=== PATIENT | male | born 1960 ===

== ENCOUNTER 2017-06-08 23:17 | Emergency (ER) | payer SELFPAY ==
[~2017-06-08] VITALS: Ht 170.2 cm; Wt 81.5 kg
[2017-06-08 23:29] VITALS: BP 95/54; PULSE 110; RESP 16; TEMP 97.3; O2SAT 91
[2017-06-09] MEDS ORDERED: HYDR50CA PO (02:31)
[2017-06-09] MEDS ORDERED: GABA600T PO (02:31)
[2017-06-09] MEDS ORDERED: PROP10TA6 PO (02:31)
[2017-06-09] MEDS ORDERED: TRAZ50TA12 PO (02:31)
[2017-06-09] MEDS ORDERED: BUSP10TA PO (02:31)
[2017-06-09] MEDS ORDERED: ESCI10TA PO (02:31)
[2017-06-09] MEDS ORDERED: LISI-515 PO (02:31)
[2017-06-09] MEDS ORDERED: SERO100T PO (02:31)
--- NOTE | 2017-06-09 02:32 | PD ---
HPI Chief Complaint: Anxiety Time Seen by Provider: 02:18 Travel History International Travel<30 days: No Contact w/Intl Traveler<30days: No Traveled to known affect area: No History of Present Illness HPI 57-year-old male presents to emergency department for evaluation of anxiety. Patient has been staying at a sober living house. This evening he was supposed to produce a urine sample but was unable to. This resulted in him being " kicked out of the house." Patient attributes to not voiding to his prostate. He denies any illicit drug use. He states he does not have a place to stay and will like to stay here. He feels as though he may be having a panic attack. He is restless. Denies chest pain or tightness. Denies difficulty breathing. Denies any other symptoms at this time. History Social History Alcohol Use: Yes Tobacco Use: Yes ( ppd) Allergies-Medications (Allergen,Severity, Reaction): Coded Allergies: No Known Allergies (Unverified , 06/09/17) Reported Meds & Prescriptions Reported Meds & Active Scripts Active Reported Buspirone (Buspirone HCl) 10 Mg Tab 10 Mg PO BID Propranolol (Propranolol HCl) 10 Mg Tab 10 Mg PO Q12HR Escitalopram (Escitalopram Oxalate) 10 Mg Tab 10 Mg PO DAILY Seroquel (Quetiapine Fumarate) 100 Mg Tab 150 Mg PO HS Trazodone (Trazodone HCl) 50 Mg Tab 50 Mg PO HS Lisinopril 20 Mg Tab 20 Mg PO DAILY Gabapentin 600 Mg Tab 600 Mg PO TID Hydroxyzine Pamoate 50 Mg Cap 50 Mg PO QID PRN Review of Systems Except as stated in HPI: all other systems reviewed are Neg Physical Exam Narrative GENERAL: Well-nourished, well-developed male patient, anxious, but in no acute distress. SKIN: Focused skin assessment warm/dry. HEAD: Normocephalic. EYES: No scleral icterus. No injection or drainage. NECK: Supple, trachea midline. No JVD or lymphadenopathy. CARDIOVASCULAR: Tachycardic rate and rhythm without murmurs, gallops, or rubs. RESPIRATORY: Breath sounds equal bilaterally. No accessory muscle use. GASTROINTESTINAL: Abdomen soft, non-tender, nondistended. MUSCULOSKELETAL: No cyanosis, or edema. BACK: Nontender without obvious deformity. No CVA tenderness. Data Data Last Documented VS Vital Signs Date Time Temp Pulse Resp B/P (MAP) Pulse Ox O2 Delivery O2 Flow Rate FiO2 06/08/17 23:29 97.3 110 16 95/54 (68) 91 Orders MDM Medical Screen Exam Complete: Yes Emergency Medical Condition: No Differential Diagnosis Anxiety, homelessness Narrative Course 57-year-old male presents to the emergency department for evaluation after losing a room at the sober living house this evening. Patient is anxious. He appears without distress however. He is tachycardic. Patient has a prescription of Vistaril with him. I have encouraged him to take this. He is provided a resource packet of places to go for homelessness. After we have talked for an extended amount time, patient's heart rate does normalize. It is 98 bpm prior to discharge. At this time there are no urgent or emergent needs for medical intervention identified. A medical screening exam was performed: At the time of evaluation the presenting medical condition was determined not to be of an emergent nature. The patient was given the option of receiving additional care, but declined. Patient was given options for additional community resources from which to obtain care. The Patient Has Been advised to seek medical attention for their presenting complaint. The patient has been advised to return to the ER at any time if an emergent condition develops. Primary Impression: Encounter for medical screening examination Condition: Stable Della Arita Jun 09, 2017 02:32
== END 2017-06-09 10:02 | disposition left against medical advice (07) ==
LOC: NEPD 23:17
DX: Z00.00 Encounter for general adult medical examination without abnormal findings (principal); F41.9 Anxiety disorder, unspecified
CPT/HCPCS: 99281